=== PATIENT | female | born 1985 | race Caucasian/White ===

== ENCOUNTER 2017-08-30 12:48 | Emergency (ER) | payer BC, OTHER ==
[2017-08-30 13:34] VITALS: BP 116/57; TEMP 98.8; BMI 24.3
--- NOTE | 2017-08-30 14:48 | PDOC ---
History of Present Illness - General Chief Complaint: Sore Throat Stated Complaint: THROAT PAIN/FEVER Time Seen by Provider: 08/30/17 13:40 History Source: Patient Exam Limitations: No Limitations - History of Present Illness Initial Comments: 08/30/17 14:45 31 yr female sore throat and fever for 3 days no vomiting Severity: mild Past History - Past Medical History Allergies/Adverse Reactions: Allergies Allergy/AdvReac Type Severity Reaction Status Date / Time No Known Allergies Allergy Verified 08/30/17 13:30 Home Medications: Ambulatory Orders Amoxicillin - [Amoxicillin 500mg Capsule -] 500 mg PO BID #20 capsule 08/30/17 - Suicide/Smoking/Psychosocial Hx Smoking History: Never smoked Hx Alcohol Use: No Drug/Substance Use Hx: No Review of Systems - Review of Systems Able to Perform ROS?: Yes Is the patient limited Greek proficient: No Constitutional: Yes: Symptoms Reported HEENTM: Yes: Symptoms Reported *Physical Exam - Vital Signs Last Vital Signs Temp Pulse Resp BP Pulse Ox 98.8 F 20 116/57 99 08/30/17 13:31 08/30/17 13:31 08/30/17 13:31 08/30/17 13:31 - Physical Exam General Appearance: Yes: Nourished, Appropriately Dressed HEENT: positive: EOMI, DAVONTE, TMs Normal, Pharynx Normal, Pharyngeal Erythema, Tonsillar Exudate, Tonsillar Erythema Neck: positive: Lymphadenopathy (R), Lymphadenopathy (L) Respiratory/Chest: positive: Lungs Clear, Normal Breath Sounds Cardiovascular: positive: Regular Rhythm, Regular Rate Gastrointestinal/Abdominal: positive: Normal Bowel Sounds, Soft Musculoskeletal: positive: Normal Inspection Extremity: positive: Normal Capillary Refill, Normal Inspection, Normal Range of Motion Integumentary: positive: Normal Color, Dry, Warm Neurologic: positive: Fully Oriented, Alert, Normal Mood/Affect, Normal Response , Motor Strength 5/5 ED Treatment Course - ADDITIONAL ORDERS Additional order review: 08/30/17 14:05 Group A Strep Rapid Antigen - Preliminary Throat Medical Decision Making - Medical Decision Making 08/30/17 14:46 cc: sore throat red with exudate will swab for strep *DC/Admit/Observation/Transfer Diagnosis at time of Disposition: Strep pharyngitis - Discharge Dispostion Disposition: HOME Condition at time of disposition: Good - Prescriptions Prescriptions: Amoxicillin - [Amoxicillin 500mg Capsule -] 500 mg PO BID #20 capsule - Referrals - Patient Instructions Printed Discharge Instructions: DI for Strep Throat Additional Instructions: gargle with warm salt water 4-5 times a day take amoxicllin as directed for 10 days finish all the medication take motrin as needed for pain do not share cups utensils - Post Discharge Activity
== END 2017-08-30 14:52 | disposition home or self-care (01) ==
LOC: JERFT 12:48
DX: J02.0 Streptococcal pharyngitis (principal)
CPT/HCPCS: 87070; 87077; 87430; 99281-25